=== PATIENT | male | born 1975 | race Caucasian/White ===

== ENCOUNTER 2024-02-13 06:15 | Day surgery (SDC) | payer OTHER, SELFPAY ==
[2024-02-13 08:13] VITALS: BP 124/80
[2024-02-13 08:17] VITALS: BMI 34.1
[2024-02-13 08:18] VITALS: BMI 34.1
[2024-02-13 10:34] VITALS: BP 94/72
[2024-02-13 10:45] VITALS: BP 109/79
[2024-02-13 11:00] VITALS: BP 114/81
== END 2024-02-13 11:20 | disposition home or self-care (01) ==
LOC: SDS 06:15
PROVIDERS: ATTENDING PHYSICIAN Internal Medicine Gastroenterology
DX: Z12.11 Encounter for screening for malignant neoplasm of colon (principal); K64.0 First degree hemorrhoids; K22.89 Other specified disease of esophagus; K85.90 Acute pancreatitis without necrosis or infection, unspecified; K31.89 Other diseases of stomach and duodenum; K86.89 Other specified diseases of pancreas; E88.89 Other specified metabolic disorders; K21.9 Gastro-esophageal reflux disease without esophagitis; Z86.010 Personal history of colon polyps
CPT/HCPCS: 43242; G0121; 88305; C1726